=== PATIENT | female | born 1960 | race African-American/Black ===

== ENCOUNTER 2018-10-20 09:03 | Inpatient (IN) | payer OTHER ==
[~2018-10-20] VITALS: Ht 165.1 cm; Wt 57.2 kg
[2018-10-20 11:10] VITALS: BP 143/101
[2018-10-20] MEDS ORDERED: ZOLPIDEM 5 MG TABLET. PO PRN (11:45)
[2018-10-20] MEDS ORDERED: PROCHLORPERAZINE 10 MG/2 ML VIAL. IV PRN (11:45)
[2018-10-20] MEDS ORDERED: CALCIUM CARBONATE 500 MG TAB.CHEW PO PRN (11:45)
[2018-10-20] MEDS ORDERED: MAG HYDROX/ALUMINUM HYD/SIMETH 30 ML ORAL.SUSP PO PRN (11:45)
[2018-10-20] MEDS ORDERED: oxyCODONE IR 5 MG TABLET PO PRN (11:45)
[2018-10-20] MEDS ORDERED: ONDANSETRON PF 4 MG/2 ML VIAL. IV PRN (11:45)
[2018-10-20] MEDS ORDERED: IBUPROFEN 200 MG TABLET. PO PRN (11:45)
[2018-10-20] MEDS ORDERED: ACETAMINOPHEN 325 MG TABLET. PO PRN (11:45)
[2018-10-20] MEDS ORDERED: MORPHINE SULFATE 4 MG/ML VIAL. IV PRN (11:45)
[2018-10-20 12:28] LABS: BASO % 1 % (0-3); EOS % 1 % (0-3); HEMATOCRIT 36.4 % (36.0-47.0); HEMOGLOBIN 12.2 g/dL (12.0-15.5); LYMPH % 32 % (24-48); MEAN CORPUSCULAR HEMOGLOBIN 30 pg (25-35); MEAN CORPUSCULAR HGB CONC 33 g/dL (31-37); MEAN CORPUSCULAR VOLUME 88 fL (79-100); MONO # 0.3 x10^3/uL (0.0-1.1); MONO % 9 % (0-9); NEUT # 1.7 x10^3uL (1.8-7.7); NEUT % 56 % (31-73); PLATELET COUNT 258 x10^3/uL (140-400); RED BLOOD COUNT 4.12 x10^6/uL (3.50-5.40); WHITE BLOOD COUNT 3.1 x10^3/uL (4.0-11.0)
[2018-10-20 12:37] LABS: CALCIUM 9.2 mg/dL (8.5-10.1); CREATININE 0.7 mg/dL (0.6-1.0); POTASSIUM 3.8 mmol/L (3.5-5.1)
--- NOTE | 2018-10-20 12:43 | PDOC2 ---
KYMBERLY SINGH PART MAKER 10/20/18 1243: CARDIAC CONSULT DATE OF CONSULT Date of Consult DATE: 10/20/18 TIME: 12:36 REASON FOR CONSULT Reason for Consult: Chest pain REFERRING PHYSICIAN Referring Physician: Katie SOURCE Source: Chart review, Patient HISTORY OF PRESENT ILLNESS HISTORY OF PRESENT ILLNESS This is a pleasant 57 yo female admitted for complains of chest pain and palpitations. Reports that 10 days ago she using the treadmill and started having some chest tightness but no nausea or SOA at that time. since then she has been having more of palpitations rather than chest tightness and feels like her heart is going to jump out of her chest. This happens intermittently does not last long but this morning she woke with it and her watch actually told her that she was in AFIB her apple watch at rate of 117, 120. No nausea or SOA at that time and again it is like her HR was beating hard. No frequent dizziness or any passing out. Denies any past arrhythmias, CAD. Denies any recent fever , chills, falls or any past VTE. No GRAHAM or exertional chest pressure. No significant changes to her activity tolerance. She has sarcoidoses and has been on treatement with prednisone from 2007 to 01/2018. Denies any hx of anxiety or depression. PAST MEDICAL HISTORY Cardiovascular: HTN Pulmonary: Other (Sarcoidosis) CENTRAL NERVOUS SYSTEM: Other (No pertinent history) GI: GERD, Peptic Ulcer disease (4 yrs ago) Musculoskeletal: Osteoarthritis Rheumatologic: No pertinent hx Infectious disease: No pertinent hx ENT: No pertinent hx Renal/: No pertinent hx Endocrine: Other (10 yrs post menopause) Dermatology: No pertinent hx PAST SURGICAL HISTORY Past Surgical History: Arthroscopy (right shoulder), Hernia Repair (hiatal), Other (cervical fusion) FAMILY HISTORY Family History noncontributory SOCIAL HISTORY Smoke: No ALCOHOL: none Drugs: None Lives: with Family ALLERGIES ALLERGIES: Coded Allergies: No Known Drug Allergies (Unverified , 10/20/18) ROS Review of System 14 point ROS evaluated with pertinent positives noted per HPI PHYSICAL EXAM General: Alert, Oriented X3, Cooperative, No acute distress HEENT: Atraumatic, Mucous membr. moist/pink Lungs: Clear to auscultation, Normal air movement Heart: Regular rate (SR), Normal S1, Normal S2, No murmurs Abdomen: Soft, No tenderness Extremities: No cyanosis, No edema Skin: No breakdown, No significant lesion Neuro: Normal speech, Sensation intact Psych/Mental Status: Mental status NL, Mood NL MUSCULOSKELETAL: Osteoarthritic changes both hands VITALS VITALS Vital Signs Date Time Temp Pulse Resp B/P (MAP) Pulse Ox O2 Delivery O2 Flow Rate FiO2 10/20/18 11:10 98.0 79 17 143/101 (115) 100 Room Air 98.0 LABS Lab: Laboratory Tests Test 10/20/18 12:15 White Blood Count 3.1 x10^3/uL (4.0-11.0) Red Blood Count 4.12 x10^6/uL (3.50-5.40) Hemoglobin 12.2 g/dL (12.0-15.5) Hematocrit 36.4 % (36.0-47.0) Mean Corpuscular Volume 88 fL (79-100) Mean Corpuscular Hemoglobin 30 pg (25-35) Mean Corpuscular Hemoglobin Concent 33 g/dL (31-37) Red Cell Distribution Width 13.0 % (11.5-14.5) Platelet Count 258 x10^3/uL (140-400) Neutrophils (%) (Auto) 56 % (31-73) Lymphocytes (%) (Auto) 32 % (24-48) Monocytes (%) (Auto) 9 % (0-9) Eosinophils (%) (Auto) 1 % (0-3) Basophils (%) (Auto) 1 % (0-3) Neutrophils # (Auto) 1.7 x10^3uL (1.8-7.7) Lymphocytes # (Auto) 1.0 x10^3/uL (1.0-4.8) Monocytes # (Auto) 0.3 x10^3/uL (0.0-1.1) Eosinophils # (Auto) 0.0 x10^3/uL (0.0-0.7) Basophils # (Auto) 0.0 x10^3/uL (0.0-0.2) ASSESSMENT/PLAN ASSESSMENT/PLAN 1. Atypical CP: sensation more from palpitations 2. HTN: controlled with 5 mg of lisinopril 3. Hx of sarcoidosis Recommendations 1. Monitor rhythm overnight. Will arrange for outpt event monitor 2. TTE today and outpt stress test is a consideration 3. Trend troponin, lipids, TSH. 4. ASA. Continue home lisinopril PETEY THOMSON MD 10/21/18 0707: CARDIAC CONSULT ASSESSMENT/PLAN ASSESSMENT/PLAN Patient seen and examined 10/20/18. Agree with CORPORATE DIRECTOR TALENT ASSESSMENT's assessment and plan. Chest pain with atypical features Myocardial infarction has been ruled out Telemetry did not show any significant arrhythmias 2-D echo showed normal LV function without any wall motion abnormalities Plan for outpatient exercise stress echo and event monitor Thank you for your consultation KYMBERLY SINGH APRN Oct 20, 2018 12:43 PETEY THOMSON MD Oct 21, 2018 07:07
[2018-10-20 13:20] LABS: CHOLESTEROL/HDL RATIO 2.2
--- NOTE | 2018-10-20 13:40 | PDOC1 ---
History and Physical Date of Admission Date of Admission DATE: 10/20/18 TIME: 13:37 Identification/Chief Complaint Chief Complaint Chest pain, SOA, palpitations Source Source: Caregiver, Chart review, Patient History of Present Illness History of Present Illness Pleasant 57-year-old -[place] African female, history of Julio fundoplication in and 3 disc fusion surgery anterior approach also in , intermittent SOA, chest pain, palpitations stuttering chest pain she describes off and on one week. No diaphoresis, no presyncopal symptoms. No known personal history of CAD but CAD does run in the family her sister at age 50s and mother. EKG and labs at first so far reassuring. Admitted for chest pain rule out. Echocardiogram ordered. Also check lipids. We'll check a TSH. No known drug allergies except for morphine she does not like the effect She only takes lisinopril 5 mg once a day for hypertension, previously was on 40 mg. She does not smoke or drink or have recreational drug use Does not think this chest pain is from GERD She is eating lunch and her heart rate etc. between 85-89 sinus rhythm Past Medical History Cardiovascular: HTN Pulmonary: Other (Sarcoidosis) CENTRAL NERVOUS SYSTEM: Other (No pertinent history) GI: GERD Musculoskeletal: Osteoarthritis Rheumatologic: No pertinent hx Infectious disease: No pertinent hx ENT: No pertinent hx Renal/: No pertinent hx Endocrine: Other (10 yrs post menopause) Dermatology: No pertinent hx Past Surgical History Past Surgical History: Arthroscopy (right shoulder), Hernia Repair (hiatal), Other (cervical fusion) Family History Family History: Heart Disease, Hypertension Social History Smoke: No ALCOHOL: none Drugs: None Current Medications Current Medications Current Medications Ondansetron HCl (Zofran) 4 mg PRN Q6HRS PRN IV NAUSEA/VOMITING; Start 10/20/18 at 11:45 Prochlorperazine Edisylate (Compazine) 10 mg PRN Q6HRS PRN IV NAUSEA/VOMITING; Start 10/20/18 at 11:45 Al Hydroxide/Mg Hydroxide (Mylanta Plus Xs) 30 ml PRN Q3HRS PRN PO HEARTBURN / GAS; Start 10/20/18 at 11:45 Calcium Carbonate/ Glycine (Tums) 500 mg PRN Q3HRS PRN PO UPSET STOMACH; Start 10/20/18 at 11:45 Zolpidem Tartrate (Ambien) 5 mg PRN QHS PRN PO INSOMNIA, MAY REPEAT IN 1HR; Start 10/20/18 at 11:45 Oxycodone HCl (Roxicodone) 5 mg PRN Q3HRS PRN PO SEVERE PAIN; Start 10/20/18 at 11:45 Morphine Sulfate (Morphine Sulfate) 1 mg PRN Q1HR PRN IV PAIN SEVERE; Start at 11:45 Acetaminophen (Tylenol) 650 mg PRN Q6HRS PRN PO Headaches, Temp > 101.5F; Start 10/20/18 at 11:45 Ibuprofen (Motrin) 400 mg PRN Q6HRS PRN PO MILD PAIN; Start 10/20/18 at 11:45 Docusate Sodium (Colace) 100 mg BID PO ; Start 10/20/18 at 21:00 Aspirin (Ecotrin) 81 mg DAILYWBKFT PO ; Start 10/20/18 at 14:00 Allergies Allergies: Coded Allergies: No Known Drug Allergies (Unverified , 10/20/18) ROS Review of System As per history of present illness, the rest of ROS 14 point negative Physical Exam General: Alert, Oriented X3, Cooperative, No acute distress HEENT: Atraumatic, PERRLA, EOMI Lungs: Clear to auscultation, Normal air movement Heart: S1S2, RRR, no thrills, no rubs, no gallops, no murmurs Cardiovascular: S1, S2 Breasts: Normal, Rt breast nml w/o mass, Lt breast nml w/o mass, Nipples normal Abdomen: Normal bowel sounds, Soft, No tenderness, No hepatosplenomegaly, No masses Rectal Exam: not examined PELVIC: Nml ext genitalia Extremities: No clubbing, No cyanosis, No edema, Normal pulses, No tenderness/ swelling Skin: No rashes, No breakdown, No significant lesion Neuro: Normal gait, Normal speech, Strength at 5/5 X4 ext, Normal tone, Sensation intact, Cranial nerves 3-12 NL, Reflexes 2+ Psych/Mental Status: Mental status NL, Mood NL Vitals Vitals Vital Signs Date Time Temp Pulse Resp B/P (MAP) Pulse Ox O2 Delivery O2 Flow Rate FiO2 10/20/18 11:10 98.0 79 17 143/101 (115) 100 Room Air 98.0 Labs Labs Laboratory Tests Test 10/20/18 12:15 White Blood Count 3.1 x10^3/uL (4.0-11.0) Red Blood Count 4.12 x10^6/uL (3.50-5.40) Hemoglobin 12.2 g/dL (12.0-15.5) Hematocrit 36.4 % (36.0-47.0) Mean Corpuscular Volume 88 fL (79-100) Mean Corpuscular Hemoglobin 30 pg (25-35) Mean Corpuscular Hemoglobin Concent 33 g/dL (31-37) Red Cell Distribution Width 13.0 % (11.5-14.5) Platelet Count 258 x10^3/uL (140-400) Neutrophils (%) (Auto) 56 % (31-73) Lymphocytes (%) (Auto) 32 % (24-48) Monocytes (%) (Auto) 9 % (0-9) Eosinophils (%) (Auto) 1 % (0-3) Basophils (%) (Auto) 1 % (0-3) Neutrophils # (Auto) 1.7 x10^3uL (1.8-7.7) Lymphocytes # (Auto) 1.0 x10^3/uL (1.0-4.8) Monocytes # (Auto) 0.3 x10^3/uL (0.0-1.1) Eosinophils # (Auto) 0.0 x10^3/uL (0.0-0.7) Basophils # (Auto) 0.0 x10^3/uL (0.0-0.2) Sodium Level 144 mmol/L (136-145) Potassium Level 3.8 mmol/L (3.5-5.1) Chloride Level 107 mmol/L (98-107) Carbon Dioxide Level 28 mmol/L (21-32) Anion Gap 9 (6-14) Blood Urea Nitrogen 12 mg/dL (7-20) Creatinine 0.7 mg/dL (0.6-1.0) Estimated GFR (Cockcroft-Gault) 104.0 Glucose Level 93 mg/dL (70-99) Calcium Level 9.2 mg/dL (8.5-10.1) Triglycerides Level 32 mg/dL (0-150) Cholesterol Level 198 mg/dL (0-200) LDL Cholesterol, Calculated 101 mg/dL (0-100) VLDL Cholesterol, Calculated 6 mg/dL (0-40) Non-HDL Cholesterol Calculated 107 mg/dL (0-129) HDL Cholesterol 91 mg/dL (40-60) Cholesterol/HDL Ratio 2.2 Thyroid Stimulating Hormone (TSH) 0.533 uIU/mL (0.358-3.74) Laboratory Tests Test 10/20/18 12:15 White Blood Count 3.1 x10^3/uL (4.0-11.0) Red Blood Count 4.12 x10^6/uL (3.50-5.40) Hemoglobin 12.2 g/dL (12.0-15.5) Hematocrit 36.4 % (36.0-47.0) Mean Corpuscular Volume 88 fL (79-100) Mean Corpuscular Hemoglobin 30 pg (25-35) Mean Corpuscular Hemoglobin Concent 33 g/dL (31-37) Red Cell Distribution Width 13.0 % (11.5-14.5) Platelet Count 258 x10^3/uL (140-400) Neutrophils (%) (Auto) 56 % (31-73) Lymphocytes (%) (Auto) 32 % (24-48) Monocytes (%) (Auto) 9 % (0-9) Eosinophils (%) (Auto) 1 % (0-3) Basophils (%) (Auto) 1 % (0-3) Neutrophils # (Auto) 1.7 x10^3uL (1.8-7.7) Lymphocytes # (Auto) 1.0 x10^3/uL (1.0-4.8) Monocytes # (Auto) 0.3 x10^3/uL (0.0-1.1) Eosinophils # (Auto) 0.0 x10^3/uL (0.0-0.7) Basophils # (Auto) 0.0 x10^3/uL (0.0-0.2) Sodium Level 144 mmol/L (136-145) Potassium Level 3.8 mmol/L (3.5-5.1) Chloride Level 107 mmol/L (98-107) Carbon Dioxide Level 28 mmol/L (21-32) Anion Gap 9 (6-14) Blood Urea Nitrogen 12 mg/dL (7-20) Creatinine 0.7 mg/dL (0.6-1.0) Estimated GFR (Cockcroft-Gault) 104.0 Glucose Level 93 mg/dL (70-99) Calcium Level 9.2 mg/dL (8.5-10.1) Triglycerides Level 32 mg/dL (0-150) Cholesterol Level 198 mg/dL (0-200) LDL Cholesterol, Calculated 101 mg/dL (0-100) VLDL Cholesterol, Calculated 6 mg/dL (0-40) Non-HDL Cholesterol Calculated 107 mg/dL (0-129) HDL Cholesterol 91 mg/dL (40-60) Cholesterol/HDL Ratio 2.2 Thyroid Stimulating Hormone (TSH) 0.533 uIU/mL (0.358-3.74) VTE Prophylaxis Ordered VTE Prophylaxis Devices: Yes VTE Pharmacological Prophylaxi: Yes Assessment/Plan Assessment/Plan Chest pain/palpitations intermittent 1 week Family history of premature CAD Nonsmoker, nondrinker, no recreational drug use History Nissens fundoplication KU History of cervical spine fusion surgery, anterior approach KU Hypertension controlled on lisinopril 5 Plan: cycle enzymes, cards consulted, okay to have a diet Check echo Check TSH Might benefit from beta fransisco instead of lisinopril to help with palpitations to?-We'll defer to cardiology DELFIN MARQUIS MD Oct 20, 2018 13:40
[2018-10-20] MEDS: ASPIRIN ENTERIC COATED 81 MG TABLET.DR. PO SCH (14:00)
--- NOTE | 2018-10-20 14:42 | EKG ---
[facility] [address] [place] [address] Test Date: 2018-10-20 Test Time: 14:25:23 Pat Name: EVIN RAMOS Department: Room: 208 1 Gender: F Forming Process Worker: BARRON : 1960 Requested By: KYMBERLY SINGH Order Number: [id number] Reading MD: Jose Antonio Maldonado MD Measurements Intervals Chauncey Rate: 73 P: 64 WY: 148 QRS: 46 QRSD: 82 T: 31 QT: 380 QTc: 422 Interpretive Statements SINUS RHYTHM AMPLITUDE CRITERIA FOR LVH Electronically Signed On 10-25-2018 7:55:48 SYSTEMS SPEC by Jose Antonio Maldonado MD
[2018-10-20 15:10] VITALS: BP 114/84
--- NOTE | 2018-10-20 18:16 | CARD ---
MR#: [id number] Date of Study: 10/20/2018 Ordering Physician: KYMBERLY SINGH, Referring Physician: DELFIN MARQUIS, Tech: Neva Parks Ritesh APPROVED REPORT EXAM: Two-dimensional and M-mode echocardiogram with Doppler and color Doppler. Other Information Quality : GoodHR: 60bpm Rhythm : NSR INDICATION Palpitations Chest Pain 2D DIMENSIONS RVDd2.8 (2.9-3.5cm)Left Atrium(2D)2.8 (1.6-4.0cm) IVSd0.8 (0.7-1.1cm)Aortic Root(2D)2.8 (2.0-3.7cm) LVDd4.7 (3.9-5.9cm)LVOT Diameter1.9 (1.8-2.4cm) PWd0.9 (0.7-1.1cm)LVDs3.3 (2.5-4.0cm) FS (%) 30.3 %SV60.0 ml LVEF(%)57.6 (>50%) Aortic Valve AoV Peak Jigar.150.5cm/sAoV VTI25.4cm AO Peak GR.9.1mmHgLVOT Peak Jigar.93.7cm/s LVOT VTI 19.41cmAO Mean GR.4mmHg SETH (VMAX)1.70dy3TSL (VTI)2.25cm2 AI P 1/2 [id number] Mitral Valve MV E Uqhxexio84.2cm/sMV DECEL [id number] MV A Blnvcbwk59.1cm/sMV [id number] E/A Ratio0.9MVA (PHT)3.71cm2 TDI E/Lateral E'5.0E/Medial E'6.8 Pulmonary Valve PV Peak Adhesjqm93.0cm/sPV Peak Grad.2mmHg Tricuspid Valve TR P. Bsavvevr347kk/sRAP PCJRECLB9buGn TR Peak Gr.94vnKkNQDT32rfAo Pulmonary Vein S1 Zipduzgn76.2cm/sD2 Ashlomer55.8cm/s PVa [id number] LEFT VENTRICLE The left ventricle is normal size. There is normal left ventricular wall thickness. The left ventricu lar systolic function is normal and the ejection fraction is within normal range. The Ejection Fracti on is 55-60%. There is normal LV segmental wall motion. Transmitral Doppler flow pattern is Grade I-a bnormal relaxation pattern. RIGHT VENTRICLE The right ventricle is normal size. There is normal right ventricular wall thickness. The right ventr icular systolic function is normal. ATRIA The left atrium size is normal. The right atrium size is normal. The interatrial septum is intact wit h no evidence for an atrial septal defect or patent foramen ovale as noted on 2-D or Doppler imaging. AORTIC VALVE The aortic valve is normal in structure and function. Doppler and Color Flow revealed mild aortic reg urgitation. There is no significant aortic valvular stenosis. MITRAL VALVE The mitral valve is normal in structure and function. There is no evidence of mitral valve prolapse. There is no mitral valve stenosis. Doppler and Color-flow revealed trace mitral regurgitation. TRICUSPID VALVE The tricuspid valve is normal in structure and function. Doppler and Color Flow revealed trace tricus pid regurgitation. There is no tricuspid valve stenosis. PULMONIC VALVE The pulmonic valve is not well visualized. Doppler and Color Flow revealed no pulmonic valvular regur gitation. GREAT VESSELS The aortic root is normal in size. The IVC is normal in size and collapses >50% with inspiration. PERICARDIAL EFFUSION There is no evidence of significant pericardial effusion. Critical Notification Critical Value: No <Conclusion> The left ventricle is normal size. The left ventricular systolic function is normal and the ejection fraction is within normal range. The Ejection Fraction is 55-60%. There is no significant aortic valvular stenosis. Doppler and Color Flow revealed mild aortic regurgitation. Doppler and Color-flow revealed trace mitral regurgitation. Doppler and Color Flow revealed trace tricuspid regurgitation. Signed by : Eugene Soria MD Electronically Approved : 10/20/2018 18:16:19
[2018-10-20 19:15] VITALS: BP 111/78
[2018-10-20] MEDS: DOCUSATE SODIUM 100 MG CAPSULE. PO SCH (21:34)
[2018-10-20 23:37] VITALS: BP 121/81
[2018-10-21 03:52] VITALS: BP 124/88
[2018-10-21 04:07] LABS: PROTHROMBIN TIME PATIENT 13.5 SEC (11.7-14.0)
[2018-10-21] MEDS: DOCUSATE SODIUM 100 MG CAPSULE. PO SCH (07:47)
[2018-10-21] MEDS: ASPIRIN ENTERIC COATED 81 MG TABLET.DR. PO SCH (07:47)
[2018-10-21 07:50] VITALS: BP 115/81
--- NOTE | 2018-10-21 10:55 | NUR ---
SS following for discharge planning. SS reviewed pt chart. Pt is from home with spouse and currently on room air. No discharge needs noted at this time. SS will continue to follow for pending discharge needs.
[2018-10-21 11:00] VITALS: BP 122/82
--- NOTE | 2018-10-21 11:55 | PDOC ---
PROGRESS NOTES Chief Complaint Chief Complaint CC: CP, SOA, palpitations HTN GERD OA Sarcoidosis FHx of CAD History of Present Illness History of Present Illness Pt is a 58 y/o female who presented to the ED with new onset CP, palpitations and SOA. Today she was seen and examined in her room. She is awake, alert and in NAD. She states she has no cardiac history and is generally pretty healthy. She feels good today. No current CP or SOA. DW her RN. Vitals Vitals Vital Signs Date Time Temp Pulse Resp B/P (MAP) Pulse Ox O2 Delivery O2 Flow Rate FiO2 10/21/18 07:50 97.9 77 16 115/81 (92) 93 Room Air 97.9 Physical Exam General: Alert, Oriented X3, Cooperative, No acute distress Heart: Regular rate (SR), Normal S1, Normal S2, No murmurs Abdomen: Normal bowel sounds, Soft, No tenderness, No hepatosplenomegaly, No masses Extremities: No clubbing, No cyanosis, No edema, Normal pulses, No tenderness/ swelling Skin: No rashes, No breakdown, No significant lesion Labs LABS Laboratory Tests Test 10/20/18 12:15 10/21/18 03:30 White Blood Count 3.1 x10^3/uL (4.0-11.0) Red Blood Count 4.12 x10^6/uL (3.50-5.40) Hemoglobin 12.2 g/dL (12.0-15.5) Hematocrit 36.4 % (36.0-47.0) Mean Corpuscular Volume 88 fL (79-100) Mean Corpuscular Hemoglobin 30 pg (25-35) Mean Corpuscular Hemoglobin Concent 33 g/dL (31-37) Red Cell Distribution Width 13.0 % (11.5-14.5) Platelet Count 258 x10^3/uL (140-400) Neutrophils (%) (Auto) 56 % (31-73) Lymphocytes (%) (Auto) 32 % (24-48) Monocytes (%) (Auto) 9 % (0-9) Eosinophils (%) (Auto) 1 % (0-3) Basophils (%) (Auto) 1 % (0-3) Neutrophils # (Auto) 1.7 x10^3uL (1.8-7.7) Lymphocytes # (Auto) 1.0 x10^3/uL (1.0-4.8) Monocytes # (Auto) 0.3 x10^3/uL (0.0-1.1) Eosinophils # (Auto) 0.0 x10^3/uL (0.0-0.7) Basophils # (Auto) 0.0 x10^3/uL (0.0-0.2) Sodium Level 144 mmol/L (136-145) Potassium Level 3.8 mmol/L (3.5-5.1) Chloride Level 107 mmol/L (98-107) Carbon Dioxide Level 28 mmol/L (21-32) Anion Gap 9 (6-14) Blood Urea Nitrogen 12 mg/dL (7-20) Creatinine 0.7 mg/dL (0.6-1.0) Estimated GFR (Cockcroft-Gault) 104.0 Glucose Level 93 mg/dL (70-99) Calcium Level 9.2 mg/dL (8.5-10.1) Troponin I Quantitative < 0.017 ng/mL (0.000-0.055) Triglycerides Level 32 mg/dL (0-150) Cholesterol Level 198 mg/dL (0-200) LDL Cholesterol, Calculated 101 mg/dL (0-100) VLDL Cholesterol, Calculated 6 mg/dL (0-40) Non-HDL Cholesterol Calculated 107 mg/dL (0-129) HDL Cholesterol 91 mg/dL (40-60) Cholesterol/HDL Ratio 2.2 Thyroid Stimulating Hormone (TSH) 0.533 uIU/mL (0.358-3.74) Prothrombin Time 13.5 SEC (11.7-14.0) Prothromb Time International Ratio 1.1 (0.8-1.1) Review of Systems Review of Systems Gen: denies fever, chills Heart: denies CP, palp Lung: denies cough, SOA Abd: denies N/V/D Assessment and Plan Assessmemt and Plan Assessment: CC: CP, SOA, palpitations HTN GERD OA Sarcoidosis FHx of CAD Plan: Cardiac monitoring - cardiology following Awaiting echo results Serial enzymes, EKG Aspirin QD PRN narcotics Daily labs PT/OT Home meds Appreciate subspecialist input Possible D/C if okay by cardiology Comment Review of Relevant I have reviewed the following items catherine (where applicable) has been applied. Labs Laboratory Tests Test 2/28/19 12:15 10/21/18 03:30 White Blood Count 3.1 x10^3/uL (4.0-11.0) Red Blood Count 4.12 x10^6/uL (3.50-5.40) Hemoglobin 12.2 g/dL (12.0-15.5) Hematocrit 36.4 % (36.0-47.0) Mean Corpuscular Volume 88 fL (79-100) Mean Corpuscular Hemoglobin 30 pg (25-35) Mean Corpuscular Hemoglobin Concent 33 g/dL (31-37) Red Cell Distribution Width 13.0 % (11.5-14.5) Platelet Count 258 x10^3/uL (140-400) Neutrophils (%) (Auto) 56 % (31-73) Lymphocytes (%) (Auto) 32 % (24-48) Monocytes (%) (Auto) 9 % (0-9) Eosinophils (%) (Auto) 1 % (0-3) Basophils (%) (Auto) 1 % (0-3) Neutrophils # (Auto) 1.7 x10^3uL (1.8-7.7) Lymphocytes # (Auto) 1.0 x10^3/uL (1.0-4.8) Monocytes # (Auto) 0.3 x10^3/uL (0.0-1.1) Eosinophils # (Auto) 0.0 x10^3/uL (0.0-0.7) Basophils # (Auto) 0.0 x10^3/uL (0.0-0.2) Sodium Level 144 mmol/L (136-145) Potassium Level 3.8 mmol/L (3.5-5.1) Chloride Level 107 mmol/L (98-107) Carbon Dioxide Level 28 mmol/L (21-32) Anion Gap 9 (6-14) Blood Urea Nitrogen 12 mg/dL (7-20) Creatinine 0.7 mg/dL (0.6-1.0) Estimated GFR (Cockcroft-Gault) 104.0 Glucose Level 93 mg/dL (70-99) Calcium Level 9.2 mg/dL (8.5-10.1) Troponin I Quantitative < 0.017 ng/mL (0.000-0.055) Triglycerides Level 32 mg/dL (0-150) Cholesterol Level 198 mg/dL (0-200) LDL Cholesterol, Calculated 101 mg/dL (0-100) VLDL Cholesterol, Calculated 6 mg/dL (0-40) Non-HDL Cholesterol Calculated 107 mg/dL (0-129) HDL Cholesterol 91 mg/dL (40-60) Cholesterol/HDL Ratio 2.2 Thyroid Stimulating Hormone (TSH) 0.533 uIU/mL (0.358-3.74) Prothrombin Time 13.5 SEC (11.7-14.0) Prothromb Time International Ratio 1.1 (0.8-1.1) Laboratory Tests Test 10/20/18 12:15 10/21/18 03:30 White Blood Count 3.1 x10^3/uL (4.0-11.0) Red Blood Count 4.12 x10^6/uL (3.50-5.40) Hemoglobin 12.2 g/dL (12.0-15.5) Hematocrit 36.4 % (36.0-47.0) Mean Corpuscular Volume 88 fL (79-100) Mean Corpuscular Hemoglobin 30 pg (25-35) Mean Corpuscular Hemoglobin Concent 33 g/dL (31-37) Red Cell Distribution Width 13.0 % (11.5-14.5) Platelet Count 258 x10^3/uL (140-400) Neutrophils (%) (Auto) 56 % (31-73) Lymphocytes (%) (Auto) 32 % (24-48) Monocytes (%) (Auto) 9 % (0-9) Eosinophils (%) (Auto) 1 % (0-3) Basophils (%) (Auto) 1 % (0-3) Neutrophils # (Auto) 1.7 x10^3uL (1.8-7.7) Lymphocytes # (Auto) 1.0 x10^3/uL (1.0-4.8) Monocytes # (Auto) 0.3 x10^3/uL (0.0-1.1) Eosinophils # (Auto) 0.0 x10^3/uL (0.0-0.7) Basophils # (Auto) 0.0 x10^3/uL (0.0-0.2) Sodium Level 144 mmol/L (136-145) Potassium Level 3.8 mmol/L (3.5-5.1) Chloride Level 107 mmol/L (98-107) Carbon Dioxide Level 28 mmol/L (21-32) Anion Gap 9 (6-14) Blood Urea Nitrogen 12 mg/dL (7-20) Creatinine 0.7 mg/dL (0.6-1.0) Estimated GFR (Cockcroft-Gault) 104.0 Glucose Level 93 mg/dL (70-99) Calcium Level 9.2 mg/dL (8.5-10.1) Troponin I Quantitative < 0.017 ng/mL (0.000-0.055) Triglycerides Level 32 mg/dL (0-150) Cholesterol Level 198 mg/dL (0-200) LDL Cholesterol, Calculated 101 mg/dL (0-100) VLDL Cholesterol, Calculated 6 mg/dL (0-40) Non-HDL Cholesterol Calculated 107 mg/dL (0-129) HDL Cholesterol 91 mg/dL (40-60) Cholesterol/HDL Ratio 2.2 Thyroid Stimulating Hormone (TSH) 0.533 uIU/mL (0.358-3.74) Prothrombin Time 13.5 SEC (11.7-14.0) Prothromb Time International Ratio 1.1 (0.8-1.1) Medications Current Medications Ondansetron HCl (Zofran) 4 mg PRN Q6HRS PRN IV NAUSEA/VOMITING; Start 10/20/18 at 11:45 Prochlorperazine Edisylate (Compazine) 10 mg PRN Q6HRS PRN IV NAUSEA/VOMITING; Start 10/20/18 at 11:45 Al Hydroxide/Mg Hydroxide (Mylanta Plus Xs) 30 ml PRN Q3HRS PRN PO HEARTBURN / GAS; Start 10/20/18 at 11:45 Calcium Carbonate/ Glycine (Tums) 500 mg PRN Q3HRS PRN PO UPSET STOMACH; Start 10/20/18 at 11:45 Zolpidem Tartrate (Ambien) 5 mg PRN QHS PRN PO INSOMNIA, MAY REPEAT IN 1HR; Start 10/20/18 at 11:45 Oxycodone HCl (Roxicodone) 5 mg PRN Q3HRS PRN PO SEVERE PAIN; Start 10/20/18 at 11:45 Morphine Sulfate (Morphine Sulfate) 1 mg PRN Q1HR PRN IV PAIN SEVERE; Start at 11:45 Acetaminophen (Tylenol) 650 mg PRN Q6HRS PRN PO Headaches, Temp > 101.5F; Start 10/20/18 at 11:45 Ibuprofen (Motrin) 400 mg PRN Q6HRS PRN PO MILD PAIN; Start 10/20/18 at 11:45 Docusate Sodium (Colace) 100 mg BID PO Last administered on 10/20/18at 21:34; Start 10/20/18 at 21:00 Aspirin (Ecotrin) 81 mg [id number] PO Last administered on 10/21/18at 07:47; Start 10/20/18 at 14:00 Vitals/I & O Vital Sign - Last 24 Hours 10/20/18 10/20/18 10/20/18 10/20/18 15:10 19:15 20:00 23:37 Temp 97.8 97.8 98.1 97.8 97.8 98.1 Pulse 78 79 80 Resp 18 18 18 B/P (MAP) 114/84 (94) 111/78 (89) 121/81 (94) Pulse Ox 100 99 99 O2 Delivery Room Air Room Air Room Air Room Air 10/21/18 10/21/18 03:52 07:50 Temp 97.9 97.9 97.9 97.9 Pulse 77 77 Resp 16 16 B/P (MAP) 124/88 (100) 115/81 (92) Pulse Ox 99 93 O2 Delivery Room Air Room Air Intake and Output 10/20/18 10/20/18 10/21/18 14:59 22:59 06:59 Intake Total 200 ml 1200 ml Output Total 1200 ml Balance 200 ml 0 ml ISAAC WARD III DO Oct 21, 2018 11:55
--- NOTE | 2018-10-21 19:36 | DS ---
DATE OF DISCHARGE: 10/21/2018 ADMISSION DIAGNOSIS: Chest pain. DISCHARGE DIAGNOSIS: Atypical chest pain. CONSULTS: Cardiology. PROCEDURES: None. HISTORY AND HOSPITAL COURSE: The patient is a pleasant 58-year-old female who presented with chest pain. We admitted the patient, did cardiac monitoring, serial enzymes, serial EKGs, echocardiogram, consulted Cardiology. If her workup is negative, we plan to discharge with close outpatient followup. I did see her and examine her this morning. Her heart tones were normal. Her lungs were clear. DISPOSITION: Home. ACTIVITY: As tolerated. DIET: Low sodium. MEDICATIONS: Please see the MRAD. TOTAL TIME: Thirty-eight minutes. ISAAC WARD DO DR: [email or web address]/[email or web address] JOB#: [id number] / [id number]
== END 2018-10-21 14:20 | disposition home or self-care (01) | DRG 313 ==
LOC: 2 NORTH 11:19
PROVIDERS: ADMIT Internal Medicine; ATTEND Internal Medicine
DX: R07.89 Other chest pain (principal); D86.9 Sarcoidosis, unspecified; I10 Essential (primary) hypertension; I48.91 Unspecified atrial fibrillation; M19.90 Unspecified osteoarthritis, unspecified site; K21.9 Gastro-esophageal reflux disease without esophagitis; Z82.49 Family history of ischemic heart disease and other diseases of the circulatory system; Z87.11 Personal history of peptic ulcer disease; Z98.1 Arthrodesis status; Z79.899 Other long term (current) drug therapy
CPT/HCPCS: 36415; 80048; 80061; 84443; 84484; 85025; 85610; 93005; 93306

== ENCOUNTER → 2019-11-03 | Outpatient (CLI) | payer OTHER ==
[~2019-11-03] MED LIST: GADOTERATE 5 MMOL/10ML VIAL. IVP ONE; LISI10TA2 PO
--- NOTE | 2019-11-03 16:37 | KCIC ---
EXAMINATION: Magnetic resonance imaging (MRI) of the cervical spine with and without contrast 11/03/2019 2:45 PM HISTORY: Right shoulder pain, mass TECHNIQUE: Multiplanar multi-weighted MRI of the cervical spine was performed with and without intravenous contrast using the standard cervical spine protocol. Contrast information: 10 cc gadolinium based contrast COMPARISON: None available. FINDINGS: There is minimal levoconvex curvature of the cervical spine. No significant spondylolisthesis. Posterior fossa is normal in appearance. Vertebral artery flow voids are maintained. Sella is normal in appearance as visualized. No prevertebral edema. Anterior cervical discectomy and fusion hardware is identified from C4 through C6. Vertebral body heights are maintained. Marrow signal intensity is normal in all sequences. There is moderate disc height loss at C3-C4 and C6-C7. Cervical spinal cord signal intensity is normal in all sequences. No paraspinal soft tissue abnormality is identified. Left apical pleural parenchymal scarring is identified. C2-C3: There is mild disc bulge. Mild facet arthropathy. Mild right neuroforaminal stenosis. No spinal canal stenosis. C3-C4: There is a posterior disc osteophyte complex with right foraminal disc protrusion. Mild facet arthropathy. Moderate right and mild left uncovertebral joint disease. Moderate right and mild left neuroforaminal stenosis. There is mild spinal canal stenosis without cord deformity or cord signal alteration. C4-C5: This level is fused. No neuroforaminal or spinal canal stenosis. C5-C6: This level is fused. No neuroforaminal or spinal canal stenosis. C6-C7: There is a posterior disc osteophyte complex. Moderate left and mild right uncovertebral joint disease. Mild to moderate left and mild right neuroforaminal stenosis. No significant facet arthropathy. Mild to moderate spinal canal stenosis with minimal indentation the ventral cord. Findings are exacerbated by ligamentum flavum infolding. No cord signal alteration is identified. C7-T1: Mild disc bulge. No neuroforaminal or spinal canal stenosis. IMPRESSION: 1. Anterior cervical discectomy and fusion hardware is identified from C4-C5 through C5-C6 with complete osseous fusion from C4 through C6. No evidence for hardware failure. 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 Electronically signed by: Trisha Melo MD (11/03/2019 4:34 PM) [id number]
--- NOTE | 2019-11-03 16:39 | KCIC ---
Examination: MRI of the right shoulder without and with IV contrast HISTORY: History of right shoulder pain, mass COMPARISON: None available TECHNIQUE: Multiplanar, multisequence MR imaging of the right shoulder performed without and with IV contrast. IV contrast used was 10 cc of dotarem. FINDINGS: The long head of the biceps tendon within the bicipital groove. The attachment of the long head the biceps tendon to the superior labral anchor grossly appears intact. The attachment of the subscapularis tendon, supraspinatus, infraspinatus tendon grossly appears intact. Minimal amount of fluid identified in the subacromial bursa. Moderate joint space loss identified in the right shoulder joint. Moderate joint space loss identified in the glenohumeral joint,, acromioclavicular joint. The visualized labrum demonstrates mild increased signal likely degenerative changes. The muscle bulk grossly appears unremarkable. No evidence of enhancing mass is identified. IMPRESSION: 1. Minimal amount of fluid identified in the subacromial bursa likely bursitis. 2. Moderate degenerative changes glenohumeral joint, acromioclavicular joint. Electronically signed by: Isak Gee MD (11/03/2019 4:36 PM) [id number]
== END | disposition home or self-care (01) ==
LOC: KCIC MRI 14:20
PROVIDERS: ATTEND Orthopaedic Surgery
DX: M19.011 Primary osteoarthritis, right shoulder (principal); M48.02 Spinal stenosis, cervical region; M50.23 Other cervical disc displacement, cervicothoracic region; M25.78 Osteophyte, vertebrae
CPT/HCPCS: 72156; 73223; A9575